=== PATIENT | male | born 1995 | race Caucasian/White ===

== ENCOUNTER 2024-12-21 04:19 | Emergency (ER) | payer OTHER, SELFPAY ==
--- OUTSIDE RECORDS SUMMARY | 2024-12-21 04:22 | XMS_ITS | CONTINUITY OF CARE DOCUMENT ---
Author Name farideh gong Address Unknown Organization [facility] Address [address] [place] [address] Phone [phone] Care Team Providers Care Sap Gatherer Name Role Phone Rock Lewis MD Unavailable INSURANCE PROVIDERS Payer name Policy type / Coverage type Jonnie red libertarian ID [facility] Medicaid [id number]
--- OUTSIDE RECORDS SUMMARY | 2024-12-21 04:22 | XMS_ITS | Clinical Summary ---
Author Organization [facility] Address [address] [place] [address] Phone Care Team Providers Care Textile Coating Machine Operator Name Role Phone Provider, None Primary Care Provider Unavailabl e Allergies No known active allergies Medications predniSONE (DELTASONE) 20 MG Tablet Take 1 Tab by mouth 2 times daily. Use as directed. 10 Tab 0 6 Active azithromycin (ZITHROMAX Z-KAT) 250 MG Tablet 2 tab(s) daily for 1 day, then 1 tab(s) daily for days 2-5. 6 Tab 0 6 Active albuterol (PROVENTIL HFA, VENTOLIN HFA) 108 (90 BASE) MCG/ACT Aerosol Solution take 2 Puffs by inhalation every 6 hours as needed for Wheezing. 1 Inhaler 0 6 Active Social History Tobacco Use Types Packs/Day Years Used Date Smoking Tobacco: Every Day Cigarettes Sex and Gender Information Value Date Recorded Sex Assigned at Not on file Legal Sex Male 4:27 PM CDT Gender Identity Not on file Sexual Orientation Not on file Last Filed Vital Signs Vital Sign Reading Time Taken Comments Blood Pressure 149/85 06/03/2016 5:45 PM CDT Pulse 82 06/03/2016 5:45 PM CDT Temperature 36.2 C (97.2 F) 06/03/2016 4:40 PM CDT Respiratory Rate 22 06/03/2016 4:40 PM CDT Oxygen Saturation 100% 06/03/2016 5:45 PM CDT Inhaled Oxygen Concentration - - Weight 86.2 kg (190 lb) 06/03/2016 4:40 PM CDT Height 182.9 cm (6') 06/03/2016 4:40 PM CDT Body Mass Index 25.77 06/03/2016 4:40 PM CDT Plan of Treatment Not on file Care Teams Textile Coating Machine Operator Relationship Specialty Start Date End Date Provider, None [place] PCP - General 06/03/16
[2024-12-21 04:34] VITALS: BP 137/76; PULSE 68; RESP 16; TEMP 36.6; O2SAT 98
[2024-12-21] MEDS: diphenhydrAMINE HCl INJ 50 MG/ML VIAL 25 MG IM (04:41)
[2024-12-21] MEDS: KETOROLAC 30 MG/ML VIAL (*BKC) IM (04:41)
[2024-12-21] MEDS: PROCHLORPERAZINE EDISYLATE 10 MG/2 ML VIAL IM (04:41)
--- NOTE | 2024-12-21 04:54 | ED.GENADULT ---
HPI - General Adult General Chief complaint: Headache Stated complaint: Headache, I'm concussion Time Seen by Provider: 12/21/24 04:34 History of Present Illness HPI narrative: Patient 29-year-old gentleman presents emergency department chief complaint of headache. Patient states these from the [facility] and was over this area and reports he has had a headache and not really been sleeping well for the last several days the patient states that he has no suicidal or homicidal ideation reports that he would like to get back home of initially Related Data Allergies Allergy/AdvReac Type Severity Reaction Status Date / Time No Known Allergies Allergy Unverified 07/21/12 16:19 Review of Systems Review of Systems: A 10 system review of systems was completed on the patient and is negative except for what is stated in the HPI. Nursing and ancillary documentation was reviewed. Exam Narrative: GENERAL: Well-appearing, well-nourished, and in no acute distress. HEAD: Normocephalic, atraumatic. EYES: PERRLA and EOMI. ENT: Nares clear, no rhinorrhea or epistaxis. Mucous membranes moist. NECK: Supple. CHEST: Clear to auscultation. No respiratory distress. HEART: Regular rate and rhythm. No murmur heard. Normal peripheral pulses. ABDOMEN: Soft, nontender, nondistended, normal active bowel sounds. EXTREMITIES: Normal range of motion. No edema. SKIN: Warm, dry, no rash. NEURO: No focal deficits. Alert and oriented x3. PSYCH: Unusual mood and affect. Course Vital Signs Vital signs: Vital Signs Temperature 36.6 C 12/21/24 04:34 Pulse Rate 68 12/21/24 04:34 Respiratory Rate 16 12/21/24 04:34 Blood Pressure 137/76 12/21/24 04:34 Pulse Oximetry 98 12/21/24 04:34 Oxygen Delivery Room Air 12/21/24 04:34 Temperature 36.6 C 12/21/24 04:34 Pulse Rate 68 12/21/24 04:34 Respiratory Rate 16 12/21/24 04:34 Blood Pressure 137/76 12/21/24 04:34 Pulse Oximetry 98 12/21/24 04:34 Oxygen Delivery Room Air 12/21/24 04:34 Medical Decision Making [facility] Narrative Medical decision making narrative: Differential diagnosis includes migraine headache, substance abuse, The patient is not suicidal or homicidal Patient was given a migraine cocktail be discharged home Vital Signs Vital Signs: Vital Signs Temperature 36.6 C 12/21/24 04:34 Pulse Rate 68 12/21/24 04:34 Respiratory Rate 16 12/21/24 04:34 Blood Pressure 137/76 12/21/24 04:34 Pulse Oximetry 98 12/21/24 04:34 Oxygen Delivery Room Air 12/21/24 04:34 Temperature 36.6 C 12/21/24 04:34 Pulse Rate 68 12/21/24 04:34 Respiratory Rate 16 12/21/24 04:34 Blood Pressure 137/76 12/21/24 04:34 Pulse Oximetry 98 12/21/24 04:34 Oxygen Delivery Room Air 12/21/24 04:34 Discharge Plan Discharge Clinical Impression: Headache Patient Disposition: Home, Self-Care Condition: Stable Instructions: Antibiotic Form, Acute Headache (ED) Patient Language: Divehi Follow-up/Referrals: Dora Thurman MD [Primary Care Provider] - Time of Disposition: 06:43
--- NOTE | 2024-12-21 05:15 | PC.NURSE ---
pt given sandwich and drink
--- OUTSIDE RECORDS SUMMARY | 2024-12-21 05:23 | XMS_ITS | Clinical Summary ---
Author Organization [facility] Address [address] [place] [address] Phone Care Team Providers Care Stand In Name Role Phone Provider, None Primary Care [...] of Treatment Not on file Care Teams Stand In Relationship Specialty Start Date End Date Provider, None [place] PCP - General 06/03/16
--- OUTSIDE RECORDS SUMMARY | 2024-12-21 05:23 | XMS_ITS | CONTINUITY OF CARE DOCUMENT ---
Author Name farideh gong Address Unknown Organization [facility] Address [address] [place] [address] Phone [phone] Care Team Providers Care Road Cutter Name Role Phone Rock Lewis MD Unavailable INSURANCE PROVIDERS Payer name Policy type / Coverage type Jonnie red democrat ID [facility] Medicaid [id number]
--- NOTE | 2024-12-21 05:43 | PC.NURSE ---
pt given warm blanket and another pillow at this time.
[2024-12-21 06:51] VITALS: BP 167/76; PULSE 76; RESP 16; TEMP 36.6; O2SAT 98
== END 2024-12-21 06:56 | disposition home or self-care (01) ==
PROVIDERS: Emergency Provider Emergency Medicine; PCP Pediatrics
DX: R51.9 Headache, unspecified (principal)
CPT/HCPCS: 96372; 99284; J0780; J1200; J1885

== ENCOUNTER 2025-08-25 14:16 | Emergency (ER) | payer OTHER, SELFPAY ==
[2025-08-25 14:16] VITALS: BP 139/89; PULSE 64; RESP 18; TEMP 36.6; O2SAT 99
--- OUTSIDE RECORDS SUMMARY | 2025-08-25 14:19 | XMS_ITS | Clinical Summary ---
Author Organization [facility] Address [address] [place] [address] Phone Care Team Providers Care Retail Banker Name Role Phone Provider, None Primary Care [...] of Treatment Not on file Care Teams Retail Banker Relationship Specialty Start Date End Date Provider, None [place] PCP - General 06/03/16
--- NOTE | 2025-08-25 14:30 | PC.NURSE ---
Patient has been offered xrays, ct scans, and wound care. Patient has refused all treatment.
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
[2025-08-25] MEDS: ACETAMINOPHEN 500 MG TABLET 1000 MG PO (15:07)
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
--- NOTE | 2025-08-25 15:23 | PC.NURSE ---
Patient was able to give phone number for family, they are on their way to pick up man patient.
[2025-08-25 15:33] VITALS: BP 135/80; PULSE 68; RESP 18; TEMP 36.6; O2SAT 99
== END 2025-08-25 15:33 | disposition home or self-care (01) ==
PROVIDERS: Emergency Provider Emergency Medicine; Referring Provider Internal Medicine
DX: S00.81XA Abrasion of other part of head, initial encounter (principal); V03.10XA Pedestrian on foot injured in collision with car, pick-up truck or van in traffic accident, initial encounter
CPT/HCPCS: 99283; A9270